=== PATIENT | female | born 1955 | race Caucasian/White ===

== ENCOUNTER 2017-04-27 13:11 | Emergency (ER) | payer MEDICAID, SELFPAY | END 2017-04-27 14:13 | disposition home or self-care (01) | PROVIDERS: Emergency Provider Nurse Practitioner Family; Visit Provider Nurse Practitioner Family | DX: N39.0 Urinary tract infection, site not specified (principal); R31.9 Hematuria, unspecified; F17.210 Nicotine dependence, cigarettes, uncomplicated; Z79.02 Long term (current) use of antithrombotics/antiplatelets; Z79.82 Long term (current) use of aspirin; Z79.899 Other long term (current) drug therapy; Z88.5 Allergy status to narcotic agent | CPT/HCPCS: 81003; 87086; 87088; 87186; 99201 ==

== ENCOUNTER → 2017-06-19 15:06 | Outpatient (REF) | payer MEDICAID, SELFPAY ==
--- NOTE | 2017-06-19 15:32 | XR_ITS ---
EXAM: XR lumbar spine 6V w bending HISTORY: ITS.REASON: Back Pain ORDERING PHYSICIAN: Keith Spivey MD PATIENT AGE: 61 years COMPARISON: None FINDINGS: There is normal alignment. Severe degenerative disc disease is present at T12-L1 and L5-S1. No fracture or dislocation. Mild facet arthritic changes are present at the lumbosacral junction. Small anterior osteophytes are present. There are slight decrease in height of L4 and L3 age indeterminate. There is a partially calcified mass in the right pelvic region measuring 5.9 x 3.9 cm. Etiology indeterminate. Suggest CT of the pelvis without contrast for further evaluation. IMPRESSION: 1. Degenerative disc disease T12-L1 and L5-S1 with facet arthritic changes at the lumbosacral junction. 2. Slight decrease in height of L3 and L4 age indeterminate 3. Partially calcified mass in the right pelvic region. Recommend CT of the pelvis for further evaluation
--- NOTE | 2017-06-19 15:32 | XR_ITS ---
XR chest 2V HISTORY: ITS.REASON: Cough ORDERING PHYSICIAN: Keith Spivey MD PATIENT AGE: 61 years COMPARISON: None available FINDINGS: The cardiomediastinal silhouette and pulmonary vascularity are within normal limits. Hyperinflation with attenuation of peripheral pulmonary vessels consistent with COPD. No lobar consolidation or collapse. Calcified granulomas present in the left upper lobe 3 mm.. Degenerative changes of the thoracic spine with mild kyphosis. IMPRESSION: COPD with old granulomatous disease, no acute finding
[2017-06-19 19:44] LABS: Basophils # 0.1 K/mm3 (0-0.2); Basophils % 0.9 % (0.1-2.0); Eosinophils # 0.1 K/mm3 (0.0-0.4); Eosinophils % 1.6 % (0.1-12.0); Hematocrit 36.3 % (37.0-47.0); Hemoglobin 11.5 g/dL (12.2-16.2); Lymphocytes # 2.3 K/mm3 (0.7-4.5); Mean Corpuscular HGB Conc 31.8 g/dL (31.8-35.4); Mean Corpuscular Hemoglobin 29.6 pg (27.0-31.2); Mean Corpuscular Volume 93.2 fl (81-99); Mean Platelet Volume 10.6 fl (7.4-10.4); Monocytes # 0.5 K/mm3 (0.1-1.0); Neutrophils # 4.9 K/mm3 (1.8-7.8); Neutrophils % 62.5 % (37.0-80.0); Platelet Count 178 K/mm3 (142-424); Red Cell Distribution Width 13.8 % (11.5-17.5); White Blood Count 7.9 K/mm3 (4.8-10.8)
[2017-06-19 20:33] LABS: Hemoglobin A1C 5.5 % (0.0-7.0)
[2017-06-19 20:55] LABS: Alanine Aminotransferase 28 U/L (12-78); Albumin Level 4.1 gm/dL (3.4-5.0); Albumin/Globulin Ratio 1.4 (1.1-1.8); Alkaline Phosphatase 87 U/L (46-116); Anion Gap 15.6 mEq/L (5-15); Aspartate Amino Transferase 25 U/L (15-37); Bilirubin,Total 0.2 mg/dL (0.2-1.0); Blood Urea Nitrogen 9 mg/dL (7-18); Calcium 8.9 mg/dL (8.5-10.1); Carbon Dioxide 25 mmol/L (21.0-32.0); Chloride 108 mmol/L (98-107); Cholesterol 187 mg/dL (140-200); Creatinine,Serum 0.79 mg/dL (0.55-1.02); Estimated Glomerular Filt Rate 74 ml/min (>60); Free T4 (Free Thyroxine) 0.66 ng/dl (0.76-1.46); GFR (African American) 90 ML/MIN (>60); Glucose 82 mg/dL (74-106); HDL Cholesterol 63 mg/dL (29-89); LDL Cholesterol 88 mg/dL (0-130); Potassium 4.6 mmoL/L (3.5-5.1); Sodium 144 mmol/L (136-145); Thyroid Stimulating Hormone 2.14 uIU/ml (0.358-3.740); Total Protein,Serum 7.1 gm/dL (6.4-8.2); Triglycerides 180 mg/dL (30-200); VLDL Cholesterol 36 mg/dL (0-40)
[2017-06-19 21:34] LABS: Amphetamine/Metha Screen,Urine Negative ng/mL (<1000); Barbiturates Screen,Urine Positive ng/mL (<200); Benzodiazepines Screen,Urine Positive ng/mL (200); Cannabinoid Screen,Urine Positive ng/mL (<50); Cocaine Screen,Urine Negative ng/g (<300); Methadone Screen,Urine Negative ng/mL (<300); Opiate Screen,Urine Negative ng/mL (<300); Phencyclidine Screen,Urine Negative ng/mL (<25)
[2017-06-19 23:15] LABS: Microscopic, Urine URINE MICROSCOPIC (MICROSCOPIC)
[2017-06-19 23:29] LABS: Appearance,Urine CLEAR (Clear); Bilirubin,Urine Negative (Negative); Blood, Urine Negative (Negative); Color,Urine YELLOW (Yellow); Glucose,Urine (UA) Negative (Negative); Ketones,Urine TRACE (Negative); Leukocyte Esterase,Urine Negative (Negative); Nitrate,Urine Negative (Negative); PH,Urine 7.5 (5.0-8.5); Protein,Urine TRACE (Negative); Urobilinogen,Urine 0.2 EU/dl (0.2)
[2017-06-20 03:58] LABS: Bacteria,Urine 1+ /lpf
[2017-06-21 12:34] LABS: Vitamin D 25 Hydroxy 37.5 ng/mL (30.0-100.0)
== END ==
LOC: LAB 15:06
PROVIDERS: PCP Emergency Medicine; Visit Provider Emergency Medicine
DX: R53.83 Other fatigue (principal); Z79.899 Other long term (current) drug therapy; R35.0 Frequency of micturition; R05 Cough; M54.9 Dorsalgia, unspecified
CPT/HCPCS: 71046; 72114; 80053; 80061; 80305; 81001; 82652; 83036; 84439; 84443; 85025

== ENCOUNTER → 2017-07-09 14:30 | Outpatient (POV) | payer MEDICAID, SELFPAY ==
[2017-07-09 14:45] VITALS: BP 159/87; PULSE 83; RESP 15; O2SAT 98; BMI 23.6
--- NOTE | 2017-07-09 15:11 | HMH.PMCON ---
Assessment and Plan (1) Back pain Current visit: Yes Status: Chronic Qualifiers: Back pain location: low back pain Chronicity: chronic Back pain laterality: midline Sciatica laterality: sciatica of left side Category: Medical Code(s): M54.9 - Dorsalgia, unspecified - Assessment and plan all Dx Assessment and Plan for all problems:: I offered this patient multiple therapies including objectively and physical therapy. Patient states only that she would like his medications. Discussed her most recent drug screen. Patient would not be a good narcotic candidate due to this. Patient does not have any MRI imaging showing any pathology. I offered to order an MRI. She is that she will talk to her PCP about this. I told her if at any time she would like to change her mind about injections that she would be more than welcome to return. This note was dictated using voice or condition software may contain errors or omissions HPI - Data of Consult Consult date: 07/09/17 Requesting Physician: Awilda Samson APRN Primary Care Provider: Keith Spivey MD Family Provider: Keith Spivey MD - Consult Narrative History of present illness: Ms. Mcbride is a 61 year old female who presents today to discuss her chronic back and left hip pain. Patient states that she is unsure of when it began. 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 Patient states that movement increases pain and medication decreases pain. She states that she has numbness tingling with sensation loss in her left leg. Patient rates her pain a 7 out of 10 today. Patient states that opioids help her pain. Patient does not currently have an MRI. She does have a x-ray that shows some degenerative changes. Patient states she has not had an MRI in many years. Patient states that she does not want to do injections or any kind of injective therapy. Patient states she is scared of this. Patient had a recent drug screen at her primary care physicians that showed positive for benzos, barbiturates, marijuana patient has not been prescribed these medications according to her ENDER. Her primary care has also noted that she has admitted to taking other people's pain medication. Patient is not had physical therapy or chiropractic therapy or massage therapy and does not want to do this at this time. CC: Awilda Samson APRN [facility] History I have reviewed the patient's past medical history: Yes Medical History: Reports:: Depression, Heart Murmur, Hyperlipidemia, Hypertension, Myocardial Infarction, Osteoporosis Other Medical History: Reports: Osteoporosis Other Surgeries: Yes: Coronary Stent Amputation: No Fractures: No - *Social History Educational Level: Attended High School Smoking Status: Current every day smoker Tobacco Type: cigarettes # Packs/Day (cigarettes): 1 Alcohol Intake: never Substance Use Type: denies use Occupational Status: disabled Housing: house Household Members: family - Psychiatric History Expresses thoughts of harming self/others: None Suicide Plan Description: Clear Pschychiatric History:: Reports:: Depression *Family Hx:: Unable to obtain, Cancer Review of Systems - Review of Systems ROS General: no recent weight change, no fever, no sleep disturbances Respiratory: no cough, no shortness of air, no recurring pulmonary infections Cardiovascular/Peripheral Vascular: No chest pain, No palpitations, no edema, no shortness of breath. Gastrointestinal: no incontinence, normal bowel movements reported Genitourinary: no incontinence Musculoskeletal: Low back pain and left hip pain Psychiatric: normal mood/ affect, Neurological: Weakness in the left lower extremity, balance issue at time Meds Home Medications Medication Instructions Recorded Confirmed Type aspirin 81 mg tablet,delayed 81 mg PO DAILY tab 06/18/17 History release buspirone 7.5 mg tablet 7.5 mg PO BID
--- NOTE | 2017-07-09 15:15 | P.CONS_ITS ---
Assessment and Plan (1) Back pain Current visit: Yes Status: Chronic Qualifiers: Back pain location: low back pain Chronicity: chronic Back pain laterality: midline Sciatica laterality: sciatica of left side Category: Medical Code(s): M54.9 - Dorsalgia, unspecified - Assessment and plan all Dx Assessment and Plan for all problems:: I offered this patient multiple therapies including objectively and physical therapy. Patient states only that she would like his medications. Discussed her most recent drug screen. Patient would not be a good narcotic candidate due to this. Patient does not have any MRI imaging showing any pathology. I offered to order an MRI. She is that she will talk to her PCP about this. I told her if at any time she would like to change her mind about injections that she would be more than welcome to return. This note was dictated using voice or condition software may contain errors or omissions HPI - Data of Consult Consult date: 07/09/17 Requesting Physician: Awilda Samson APRN Primary Care Provider: Keith Spivey MD Family Provider: Keith Spivey MD - Consult Narrative History of present illness: Ms. Mcbride is a 61 year old female who presents today to discuss her chronic back and left hip pain. Patient states that she is unsure of when it began. 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 Patient states that movement increases pain and medication decreases pain. She states that she has numbness tingling with sensation loss in her left leg. Patient rates her pain a 7 out of 10 today. Patient states that opioids help her pain. Patient does not currently have an MRI. She does have a x-ray that shows some degenerative changes. Patient states she has not had an MRI in many years. Patient states that she does not want to do injections or any kind of injective therapy. Patient states she is scared of this. Patient had a recent drug screen at her primary care physicians that showed positive for benzos, barbiturates, marijuana patient has not been prescribed these medications according to her ENDER. Her primary care has also noted that she has admitted to taking other people's pain medication. Patient is not had physical therapy or chiropractic therapy or massage therapy and does not want to do this at this time. CC: Awilda Samson APRN [facility] History I have reviewed the patient's past medical history: Yes Medical History: Reports:: Depression, Heart Murmur, Hyperlipidemia, Hypertension, Myocardial Infarction, Osteoporosis Other Medical History: Reports: Osteoporosis Other Surgeries: Yes: Coronary Stent Amputation: No Fractures: No - *Social History Educational Level: Attended High School Smoking Status: Current every day smoker Tobacco Type: cigarettes # Packs/Day (cigarettes): 1 Alcohol Intake: never Substance Use Type: denies use Occupational Status: disabled Housing: house Household Members: family - Psychiatric History Expresses thoughts of harming self/others: None Suicide Plan Description: Clear Pschychiatric History:: Reports:: Depression *Family Hx:: Unable to obtain, Cancer Review of Systems - Review of Systems ROS General: no recent weight change, no fever, no sleep disturbances Respiratory: no cough, no shortness of air, no recurring pulmonary infections Cardiovascular/Peripheral Vascular: No chest pain, No palpitations, no edema, no shortness of breath. Gastrointestinal: no incontinence, normal bowel movements reported Genitourinary: no incont
== END ==
PROVIDERS: PCP Emergency Medicine; Visit Provider Clinical Nurse Specialist Family Health
DX: M51.17 Intervertebral disc disorders with radiculopathy, lumbosacral region (principal)
CPT/HCPCS: 99202

== ENCOUNTER → 2017-08-17 13:00 | Outpatient (CLI) | payer MEDICARE, MEDICAID, SELFPAY ==
--- NOTE | 2017-08-17 13:00 | MR_ITS ---
MR lumbar spine wo con, MR 3-d myelogram/MRCP Ordering Physician: Keith Spivey MD Patient Age: 61 years: Female HISTORY: ITS.REASON: Back Pain Back pain low back.. Left hip pain right leg tingling and numbness symptoms 3 months TECHNIQUE: Sagittal STIR, T1, T2, axial T1 and T2. On 1.5T Siemens wide bore MRI. 3-D MR myelogram image set obtained & performed on MRI workstation. Additional sagittal thin section T2 weighted dataset obtained from this latter acquisition as well (---76 CPT) COMPARISON :Plain films lumbar spine series from 06/19/2016 FINDINGS . there is mild motion on this on most sequences of this study which somewhat/slightly degrades image quality The sagittal images extend up to the lower T-spine.: T10-11 diffuse mild disc bulge along generous facet and posterior element hypertrophy. Narrowing and indentation thecal sac most evident to the right due to these features T11/12. Prominent degenerative disc space narrowing most evident anteriorly. Reactive endplate changes. Spondylosis. Mild diffuse disc bulge with posterior hypertrophic ridging indents thecal sac. Indentation of thecal sac most evident right paracentral.. Mild bilateral foraminal encroachment due to mild foraminal disc bulge T12/L1 Marked degenerative disc space narrowing , with slight 2.5 mm retrolisthesis of T12 on L1... Reactive endplate signal changes from degenerated disc also endplate irregularities possibly fromwith Schmorl's node inferior T12.. Posterior hypertrophic endplate ridging along with disc bulge most evident the left indenting the left aspect of thecal sac... L1/2: Prominent facet hypertrophy. Indents posterior thecal sac and present foramen. Disc intact with only mild prominence possible trace bulge towards towards left foraminal disc bulge. Unimpressive L2/3. Moderate ligament flavum hypertrophy with mild facet hypertrophy and slightly indents the posterior thecal sac. The disc intact with only prominence towards the foramen. Minimal. L3/4. Right foraminal disc bulge yields mild right foraminal encroachment. Moderate facet hypertrophy. Borderline spinal stenosis. L4/5. Exuberant posterior element hypertrophy bilaterally but most pronounced in the right indenting the thecal sac posteriorly on right. Possible tiny cystic area at from facet as well. Diffuse disc bulge combination of features yield moderately pronounced central canal stenosis and moderate bilateral foraminal encroachment with slightly more evident foraminal encroachment on right L5/S1. Disc space narrowing. Prominent facet hypertrophy. Mild spondylosis & Trace disc bulge mild bilateral foraminal encroachment. 3-D MRI myelogram: Most prominent findings at L4/5. Evident Spinal stenosis with indentation upon the right aspect of thecal sac most pronounced at this level . On also note indentation upon the left aspect of the thecal sac atq T12/L1 IMPRESSION: 1. Spondylosis lower thoracic and lumbar spine. Multilevel degenerative disc changes and degenerative facet changes at multiple levels detailed above 2. Most notable findings: L4/5. Findings most evident at this level: Moderately pronounced spinal stenosis due to exuberant facet / posterior element hypertrophy and disc bulge. Exuberant Facet hypertrophy indenting thecal sac more to the right. Bilateral foraminal encroachment right greater than left T12/L1. Marked degenerative disc narrowing] endplate changes. Slight retrolisthesis with diffuse disc bulge most evident to the left indenting left aspect of thecal sac. Moderate bilateral foraminal encroachment. . Notable but less pronounced findings at other levels as above in text
--- NOTE | 2017-08-17 14:14 | CA_ITS ---
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 Left atrium is moderately enlarged, left ventricle is moderately dilated, there is severely reduced left ventricular systolic function, visually estimated ejection fraction of 20-25%, there is marked hypokinesis involving mid to distal septum, anterior, anteroapical and apical wall. 2. The right atrium and right ventricle are normal size and contractility. 3. The aortic valve is minimally thickened and fibrosed. 4. The mitral and tricuspid valve leaflets are minimally thickened. 5. The pulmonic valve is poorly visualized. 6. No significant pericardial effusion noted. DOPPLER INTERROGATION: Doppler interrogation of the aortic, mitral and tricuspid valvular presence of mild mitral and tricuspid regurgitation, tricuspid and jet velocity insufficient for calculation of the right ventricular systolic pressure, grade 1 diastolic dysfunction seen with tissue Doppler evidence of raised left atrial pressure. CONCLUSION: 1. Moderately enlarged atrium, moderately dilated left ventricle, severely reduced left ventricular systolic function, visually estimated ejection fraction is 20-25% with multiple segmental wall motion abnormality, grade 1 diastolic dysfunction seen with tissue Doppler evidence of raised left atrial pressure. 2. Mild mitral and tricuspid regurgitation 3. No significant pericardial effusion noted.
== END ==
PROVIDERS: PCP Emergency Medicine; Visit Provider Emergency Medicine
DX: M54.9 Dorsalgia, unspecified (principal); M54.5 Low back pain; R01.1 Cardiac murmur, unspecified
CPT/HCPCS: 72148; 76376; 93306

== ENCOUNTER → 2017-11-09 11:31 | Outpatient (CLI) | payer MEDICARE, MEDICAID, SELFPAY ==
[2017-11-09 14:26] LABS: Basophils # 0.1 K/mm3 (0-0.2); Basophils % 0.8 % (0.1-2.0); Eosinophils # 0.2 K/mm3 (0.0-0.4); Eosinophils % 2.4 % (0.1-12.0); Hematocrit 42.6 % (37.0-47.0); Hemoglobin 13.3 g/dL (12.2-16.2); Lymphocytes # 1.6 K/mm3 (0.7-4.5); Lymphocytes % 22.3 K/mm3 (10-50); Mean Corpuscular HGB Conc 31.2 g/dL (31.8-35.4); Mean Corpuscular Hemoglobin 28.7 pg (27.0-31.2); Mean Corpuscular Volume 91.8 fl (81-99); Mean Platelet Volume 9.5 fl (7.4-10.4); Monocytes # 0.4 K/mm3 (0.1-1.0); Monocytes % 5.4 % (1.7-9.3); Neutrophils % 69.1 % (37.0-80.0); Platelet Count 229 K/mm3 (142-424); Red Blood Count 4.63 M/mm3 (4.20-5.40); Red Cell Distribution Width 14.1 % (11.5-17.5); White Blood Count 7.2 K/mm3 (4.8-10.8)
[2017-11-09 15:28] LABS: Erythrocyte Sedimentation Rate 12 mm/hr (0-30)
== END ==
PROVIDERS: Visit Provider Emergency Medicine
DX: J44.1 Chronic obstructive pulmonary disease with (acute) exacerbation (principal); I25.10 Atherosclerotic heart disease of native coronary artery without angina pectoris
CPT/HCPCS: 85025; 85651

== ENCOUNTER → 2017-11-13 09:48 | Outpatient (CLI) | payer MEDICARE, MEDICAID, SELFPAY ==
[2017-11-13 10:54] LABS: Amphetamine/Metha Screen,Urine Negative ng/mL (<1000); Barbiturates Screen,Urine Positive ng/mL (<200); Benzodiazepines Screen,Urine Negative ng/mL (<200); Cannabinoid Screen,Urine Positive ng/mL (<50); Cocaine Screen,Urine Negative ng/mL (<300); Methadone Screen,Urine Negative ng/mL (<300); Opiate Screen,Urine Negative ng/mL (<300); Phencyclidine Screen,Urine Negative ng/mL (<25)
== END ==
PROVIDERS: Visit Provider Emergency Medicine
DX: Z79.899 Other long term (current) drug therapy (principal)
CPT/HCPCS: 80305

== ENCOUNTER → 2017-12-28 11:12 | Outpatient (REF) | payer MEDICARE, MEDICAID, SELFPAY ==
[2017-12-28 14:48] LABS: Amphetamine/Metha Screen,Urine Negative ng/mL (<1000); Barbiturates Screen,Urine Negative ng/mL (<200); Benzodiazepines Screen,Urine Negative ng/mL (<200); Cannabinoid Screen,Urine Positive ng/mL (<50); Cocaine Screen,Urine Negative ng/mL (<300); Methadone Screen,Urine Negative ng/mL (<300); Opiate Screen,Urine Negative ng/mL (<300); Phencyclidine Screen,Urine Negative ng/mL (<25)
== END ==
LOC: LAB 11:12
PROVIDERS: Visit Provider Nurse Practitioner Family
DX: M47.816 Spondylosis without myelopathy or radiculopathy, lumbar region (principal)
CPT/HCPCS: 80305

== ENCOUNTER → 2018-01-15 12:47 | Outpatient (CLI) | payer MEDICARE, MEDICAID, SELFPAY ==
--- NOTE | 2018-01-15 12:51 | NVE_ITS ---
Venous Exam Indications: 782.3 Edema. IMPRESSIONS 1. There is no evidence of significant Reflux. 2. No evidence of deep or superficial vein thrombosis involving the right lower extremity History: Redness of the right lower extremity. Risk factors: Current tobacco use. Hypertension. Labs, prior tests, procedures, and surgery: Coronary artery bypass grafting (01-Jan-2018). Patient has redness and edema at the vein harvesting site in RLE. Labs, prior tests, procedures, and surgery: Coronary artery bypass grafting (01-Jan-2018). Patient has redness and edema at the vein harvesting site in RLE. Right lower extremity venous duplex evaluation. Doppler flow study including spectral analysis, color and abdul scale imaging. Location: Vascular laboratory. Patient status: Outpatient. CRITICAL FINDINGS - Reported to: Dr. Juan Carlos Bassett office - Read back and verified. - 01/15/18 - 13:00 - RLE negative for DVT or SVT Tables: Venous flow and imaging: + +-------+ + Location Overall Flow properties + +-------+ + Right common femoral Patent Normal phasicity; spontaneous; normal augmentation; compressible + +-------+ + Right saphenofemoral junction Patent Compressible + +-------+ + Right profunda femoral Patent Compressible + +-------+ + Right femoral Patent Normal phasicity; spontaneous; normal augmentation; compressible + +-------+ + Right greater saphenous Patent Normal phasicity; spontaneous; normal augmentation; compressible + +-------+ + Right popliteal Patent Normal phasicity; spontaneous; normal augmentation; compressible + +-------+ + Right posterior tibial Patent Compressible + +-------+ + Right peroneal Patent Compressible + +-------+ + Right gastrocnemius Patent Compressible + +-------+ + Right soleal Patent Compressible + +-------+ + (Report amended ) Electronically signed by: Randy Kwong [id number]
== END ==
PROVIDERS: PCP Emergency Medicine; Visit Provider Internal Medicine
DX: R60.9 Edema, unspecified (principal); M79.661 Pain in right lower leg
CPT/HCPCS: 93971